=== PATIENT | male | born 1975 | race Caucasian/White ===

== ENCOUNTER 2017-08-02 17:13 | Inpatient (IN) | payer MEDICAID ==
[~2017-08-02] VITALS: Ht 177.8 cm; Wt 113.1 kg
[2017-08-02 17:18] VITALS: Ht 177.8 cm; Wt 113.1 kg
[2017-08-02 18:14] LABS: BASOPHIL % 0.2 % (0-2); PLATELET COUNT 295 x10^3mcL (130-400); RED CELL DISTRIBUTION WIDTH 13.5 % (11.5-14.5)
[2017-08-02 18:19] LABS: CALCIUM 8.8 mg/dL (8.5-10.1); CARBON DIOXIDE 27.8 mmol/L (21-32); CHLORIDE SERUM 99 mmol/L (98-107); CREATININE SERUM 0.9 mg/dL (0.7-1.3); GFR1 > 60 mL/min; GLUCOSE SERUM 122 mg/dL (74-106); POTASSIUM SERUM 3.5 mmol/L (3.5-5.1); SODIUM SERUM 137 mmol/L (136-145)
[2017-08-02 18:21] LABS: microscopic required? NO
[2017-08-02 18:23] LABS: ALBUMIN 3.8 g/dL (3.4-5.0); ALKALINE PHOSPHATASE 71 U/L (46-116); ALT/SGPT 42 U/L (16-63); AMYLASE 49 U/L (25-115); AST/SGOT 17 U/L (15-37); BILIRUBIN TOTAL 0.9 mg/dL (0.20-1.00); LIPASE 48 IU/L (73-393); TOTAL PROTEIN, SERUM 7.7 g/dL (6.4-8.2)
[2017-08-02 18:37] LABS: urine erythrocyte NEGATIVE (NEGATIVE)
[2017-08-02 19:46] LABS: T3 TOTAL 1.05 ng/mL
[2017-08-02 19:55] LABS: FREE T4 0.91 ng/dL (0.76-1.46); FREE THYROXINE INDEX 2.3 ug/dL (1.4-4.5); T4(THYROXINE) 6.7 ug/dL (4.7-13.3)
[2017-08-02 19:56] VITALS: BP 141/89
[2017-08-02 20:12] LABS: CHOLESTEROL/HDL RATIO 5.2; MAGNESIUM 1.6 mg/dL (1.8-2.4); PHOSPHOROUS 2.6 mg/dL (2.5-4.9)
[2017-08-03 05:45] VITALS: BP 130/70
[2017-08-03 06:27] LABS: PLATELET COUNT 280 x10^3mcL (130-400); RED CELL DISTRIBUTION WIDTH 13.1 % (11.5-14.5)
[2017-08-03 06:50] LABS: CALCIUM 8.4 mg/dL (8.5-10.1); CARBON DIOXIDE 27.4 mmol/L (21-32); CHLORIDE SERUM 102 mmol/L (98-107); GFR1 > 60 mL/min; GLUCOSE SERUM 160 mg/dL (74-106); MAGNESIUM 1.9 mg/dL (1.8-2.4); PHOSPHOROUS 3.9 mg/dL (2.5-4.9); POTASSIUM SERUM 4.1 mmol/L (3.5-5.1); SODIUM SERUM 139 mmol/L (136-145)
[2017-08-03 08:04] LABS: BAND NEUTROPHIL 4 % (0-10); MONOCYTE 2 % (0-7); SEGMENTED NEUTROPHILS 88 % (37-75); rbc morphology (normal/abnorm) NORMAL (NORMAL)
[2017-08-03 09:47] VITALS: BP 122/71
[2017-08-03 13:33] VITALS: BP 130/81
[2017-08-03 17:19] VITALS: BP 144/83
[2017-08-03 21:00] VITALS: BP 133/79
[2017-08-04 05:45] VITALS: BP 119/80
[2017-08-04 05:59] LABS: BASOPHIL % 0.4 % (0-2); PLATELET COUNT 251 x10^3mcL (130-400); RED CELL DISTRIBUTION WIDTH 13.6 % (11.5-14.5)
[2017-08-04 06:21] LABS: CALCIUM 8.2 mg/dL (8.5-10.1); CARBON DIOXIDE 27.4 mmol/L (21-32); CHLORIDE SERUM 105 mmol/L (98-107); GFR1 > 60 mL/min; GLUCOSE SERUM 131 mg/dL (74-106); MAGNESIUM 2.1 mg/dL (1.8-2.4); PHOSPHOROUS 3.4 mg/dL (2.5-4.9); POTASSIUM SERUM 3.8 mmol/L (3.5-5.1); SODIUM SERUM 139 mmol/L (136-145)
[2017-08-04 08:47] VITALS: BP 143/95
[2017-08-04 16:52] VITALS: BP 161/101
[2017-08-05 05:50] VITALS: BP 144/97
[2017-08-05 06:27] LABS: BASOPHIL % 0.5 % (0-2); PLATELET COUNT 322 x10^3mcL (130-400); RED CELL DISTRIBUTION WIDTH 13.4 % (11.5-14.5)
[2017-08-05 07:04] LABS: CALCIUM 8.8 mg/dL (8.5-10.1); CARBON DIOXIDE 30.8 mmol/L (21-32); CHLORIDE SERUM 102 mmol/L (98-107); CREATININE SERUM 0.9 mg/dL (0.7-1.3); GFR1 > 60 mL/min; GLUCOSE SERUM 114 mg/dL (74-106); MAGNESIUM 1.9 mg/dL (1.8-2.4); PHOSPHOROUS 5.1 mg/dL (2.5-4.9); SODIUM SERUM 141 mmol/L (136-145)
[2017-08-05 08:33] VITALS: BP 148/90
[2017-08-05] MEDS ORDERED: LEVAQUIN750 MG PO (11:57)
[2017-08-05] MEDS ORDERED: CLEOCIN HCL300 MG PO (11:58)
[2017-08-05] MEDS ORDERED: LAC PO (11:59)
[2017-08-05] MEDS ORDERED: COL100 PO (12:00)
[2017-08-05] MEDS ORDERED: SIMETHICONE80 MG CH (12:00)
[2017-08-05] MEDS ORDERED: TYLENOL325 M1 PO (12:06)
[2017-08-05] MEDS ORDERED: NORCO1 TA2 PO (12:07)
[2017-08-05 14:07] VITALS: BP 148/90
== END 2017-08-05 16:51 | disposition home or self-care (01) | DRG 710 ==
LOC: ED 17:13 → MU 18:51 → DU 18:51 → MU 08-03 09:25
PROVIDERS: Emergency Medicine; Family Medicine; Surgery
PROC: 0DTJ4ZZ Resection of Appendix, Percutaneous Endoscopic Approach (ICD-10-PCS; principal; 2017-08-02 20:30)
DX: A41.9 Sepsis, unspecified organism (principal); K35.2 Acute appendicitis with generalized peritonitis; E11.65 Type 2 diabetes mellitus with hyperglycemia; E83.42 Hypomagnesemia; R65.20 Severe sepsis without septic shock; E66.9 Obesity, unspecified; Z68.36 Body mass index [BMI] 36.0-36.9, adult; F17.200 Nicotine dependence, unspecified, uncomplicated
CPT/HCPCS: 82962; 83880; 84439; J0330; J1644; J2175; J2250; J2270; J2405; J2543; J2704; J2710; J3010; J3490; J7030; J7120; J7613; Q0092

== ENCOUNTER 2017-10-18 22:44 | Emergency (ER) | payer SELFPAY ==
[~2017-10-18] VITALS: Ht 188 cm; Wt 108.0 kg
[~2017-10-18 22:44] MED LIST: CLEOCIN HCL300 MG PO; COL100 PO; LAC PO; LEVAQUIN750 MG PO; NORCO1 TA2 PO; SIMETHICONE80 MG CH; TYLENOL325 M1 PO
[2017-10-18 23:19] VITALS: BP 152/76; Ht 188 cm; Wt 108.0 kg
== END 2017-10-19 01:28 | disposition left against medical advice (07) ==
LOC: ED 22:44
DX: Z53.21 Procedure and treatment not carried out due to patient leaving prior to being seen by health care provider (principal)

== ENCOUNTER 2018-05-20 10:16 | Emergency (ER) | payer MEDICAID ==
[~2018-05-20] VITALS: Ht 175.3 cm; Wt 106.1 kg
[2018-05-20 10:20] VITALS: Ht 175.3 cm; Wt 106.1 kg
[2018-05-20 14:07] VITALS: BP 130/87
== END 2018-05-20 14:07 | disposition home or self-care (01) ==
LOC: ED 10:16
DX: J45.909 Unspecified asthma, uncomplicated (principal); J20.9 Acute bronchitis, unspecified; F17.210 Nicotine dependence, cigarettes, uncomplicated; Z90.89 Acquired absence of other organs
CPT/HCPCS: 99406; J0171; J7512; J7613; J7644; Q0092

== ENCOUNTER 2018-06-03 11:18 | Emergency (ER) | payer MEDICAID ==
[~2018-06-03] VITALS: Ht 175.3 cm; Wt 106.6 kg
[2018-06-03 11:46] VITALS: Ht 175.3 cm; Wt 106.6 kg
[2018-06-03 18:29] VITALS: BP 135/78
== END 2018-06-03 18:29 | disposition home or self-care (01) ==
LOC: ED 11:18
DX: S93.602A Unspecified sprain of left foot, initial encounter (principal); S40.011A Contusion of right shoulder, initial encounter; S20.211A Contusion of right front wall of thorax, initial encounter; S30.1XXA Contusion of abdominal wall, initial encounter; S90.02XA Contusion of left ankle, initial encounter; J45.909 Unspecified asthma, uncomplicated; Z90.89 Acquired absence of other organs; V19.3XXA Pedal cyclist (driver) (passenger) injured in unspecified nontraffic accident, initial encounter; Y93.I9 Activity, other involving external motion; Y99.8 Other external cause status; Y92.413 State road as the place of occurrence of the external cause

== ENCOUNTER 2018-07-08 20:46 | Emergency (ER) | payer MEDICAID ==
[~2018-07-08] VITALS: Ht 172.7 cm; Wt 105.2 kg
[2018-07-08 20:55] VITALS: Ht 172.7 cm; Wt 105.2 kg
[2018-07-08 22:34] VITALS: BP 135/88
== END 2018-07-08 22:34 | disposition home or self-care (01) ==
LOC: ED 20:46
DX: J10.1 Influenza due to other identified influenza virus with other respiratory manifestations (principal); J45.909 Unspecified asthma, uncomplicated; Z90.89 Acquired absence of other organs
CPT/HCPCS: 87804; J1885

== ENCOUNTER 2018-11-30 22:39 | Inpatient (IN) | payer MEDICAID ==
[~2018-11-30] VITALS: Ht 188 cm; Wt 104.8 kg
[2018-11-30 22:57] VITALS: Ht 188 cm; Wt 104.8 kg
--- NOTE | 2018-12-01 01:24 | NUR ---
PT PRESENTS TO ED WITH C/C OF LOWER LEFT QUADRANT PAIN, RADIATING TO HIS LEFT LOWER BACK. UPON PALPATION PT REPORTS SEVERE PAIN. PT STATES HE IS HAVING DIFFIUCTLY URINATING DUE TO PAIN. PT REPORTS HX OF "STONES" IN HIS URINE APPROX 7 MONTHS AGO. PT DENIES N/V AND CONSTIPATION. PT REPORTED THAT HE LAST URINATED APPROXIMATELY 30 MINUTES AGO IN THE ED, URINATION WAS PAINFUL. AT BEDSIDE. PT AWAKE, AAOX4, AMBULATORY WITH STEADY GAIT, RESP E/U, NAD NOTED.
[2018-12-01 01:51] LABS: microscopic required? YES; urine erythrocyte 3+ (NEGATIVE)
[2018-12-01 01:52] LABS: BASOPHIL % 0.6 % (0-2); PLATELET COUNT 340 x10^3mcL (130-400); RED CELL DISTRIBUTION WIDTH 12.8 % (11.5-14.5)
[2018-12-01 01:59] LABS: CALCIUM 8.1 mg/dL (8.5-10.1); CARBON DIOXIDE 24.5 mmol/L (21-32); CREATININE SERUM 1.7 mg/dL (0.7-1.3); POTASSIUM SERUM 4.1 mmol/L (3.5-5.1)
[2018-12-01 02:04] LABS: ALBUMIN 3.5 g/dL (3.4-5.0); BILIRUBIN TOTAL 0.48 mg/dL (0.20-1.00); TOTAL PROTEIN, SERUM 7.5 g/dL (6.4-8.2)
--- NOTE | 2018-12-01 02:45 | NUR ---
PT RESTING IN ED [place]. PT HAS AT BEDSIDE. NO ACD NOTED
--- NOTE | 2018-12-01 03:57 | NUR ---
PT MEDICATED PER EMAR ORDERS. PLEASE SEE EMAR. PT IS A/O X4. PT RESP ARE E/U. PT HAS CALL LIGHT WITHIN REACH. NO ACD NOTED
--- NOTE | 2018-12-01 04:13 | NUR ---
PT REPORT GIVEN TO VERNA RN UPSTAIRS TO ASSUME PRIMARY CARE OF PT
--- NOTE | 2018-12-01 04:25 | NUR ---
RECEIVED PT FROM ED VIA WHEELCHAIR, CAME IN DUE TO LEFT ABDOMINAL PAIN RADIATING TO LEFT FLANK AREA X1 WEEK. AAOX4. DENIES HEADACHE/DIZZINESS. ABLE TO FOLLOW COMMANDS. NO SOB NOTED. DENIES CHEST PAIN/PRESSURE. DENIES ABDOMINAL DISCOMFORT. ABDOMEN IS SOFT. DENIES FLANK PAIN. C/O PAIN ON URINATION ONLY. IV SITE ON THE LFA IS PATENT AND INTACT. SIDE RAILS UPX2. CALL LIGHT ON REACH. WILL CONT TO MONITOR
[2018-12-01 04:27] VITALS: BP 134/89
--- NOTE | 2018-12-01 04:27 | NUR ---
PT WHEELED UPSTAIRS VIA WHEELCHAIR TO ROOM 222A BY EMT ROSEMARY. NO INCIDENCE NOTED
[2018-12-01 04:30] LABS: MAGNESIUM 1.9 mg/dL (1.8-2.4); PHOSPHOROUS 4.6 mg/dL (2.5-4.9)
[2018-12-01 04:51] LABS: CHOLESTEROL/HDL RATIO 6.2
--- NOTE | 2018-12-01 05:10 | NUR ---
BEDSIDE REPORT GIVEN TO LUISANA FOR CONTINUITY OF CARE
--- NOTE | 2018-12-01 06:05 | NUR ---
PT IN BED RESTING. NO ACUTE RESP DISTRESS NOTED ON RA. PT DENIES ANY PAIN AT THIS TIME. RESPIRATORY THERAPIST AT BEDSIDE FOR EKG. BLOOD SUGAR WAS CHECKED 123. NO COVERAGE NEEDED. DIET ORDER PLACED FOR TOMORROW, PAGED DR. SANDS TO CORRECT ORDER, AWAITING CALL BACK. WILL CONTINUE TO MONITOR. CALL LIGHT IN REACH. BED IN LOWEST POSITION.
--- NOTE | 2018-12-01 07:45 | NUR ---
PT IN BED RESTING. MED SURG. DENIES CHEST PAIN/PRESSURE. RESPIRATION EQUAL AND UNLABORED ON RA. DENIES SOB. PT STATES PAIN IS ONLY UPON URINATION. PT DENIES ANY PAIN AT THIS TIME. PT ENCOURAGED TO VOIDS USING URINAL, SO URINE CAN BE STRAINED. PT VERBALIZED UNDERSTANDING. IV PATENT AND INFUSING TO LFA. NO REDNESS OR SWELLING NOTED. WILL CONTINUE TO MONITOR. CALL LIGHT IN REACH. BED IN LOWEST POSITION.
[2018-12-01 08:10] VITALS: BP 122/74
--- NOTE | 2018-12-01 08:45 | NUR ---
PT SITTING UP IN BED. NO ACUTE RESP DISTRESS NOTED ON RA. PT DENIES ANY PAIN AT THIS TIME. FAMILY AT BEDSIDE. PT GIVEN PO MEDS. TOLERATED WELL. IV PATENT AND INFUSING TO LFA. NO REDNESS OR SWELLING NOTED. WILL CONTINUE TO MONITOR. CALL LIGHT IN REACH. BED IN LOWEST POSITION.
--- NOTE | 2018-12-01 09:33 | NUR ---
RECEIVED PT FROM REINFORCING BAR SETTER RN VERNA, BEDSIDE REPORT GIVEN. WILL CONTINUE TO MONITOR.
--- NOTE | 2018-12-01 11:37 | NUR ---
PT IN BED RESTING. NO ACUTE RESP DISTRESS NOTED ON RA. PT DENIES ANY PAIN AT THIS TIME. BLOOD SUGAR CHECKED WAS 115. NO COVERAGE NEEDED. STRAINED 400 ML OF YELLOW URINE, NO STONES NOTED. WILL CONTINUE TO MONITOR. CALL LIGHT IN REACH. BED IN LOWEST POSITION.
[2018-12-01 12:46] VITALS: BP 116/64
--- NOTE | 2018-12-01 14:50 | NUR ---
PT SITTING UP IN BED. PT C/O PAIN TO GROIN AREA /10 TENDERNESS. MEDICATED PER EMAR. TOLERATED WELL. WILL CONTINUE TO MONITOR. CALL LIGHT IN REACH. BED IN LOWEST POSITION.
[2018-12-01 15:01] LABS: AMPHETAMINE QUAL UR NONE DETECTED (See below)
[2018-12-01] MEDS ORDERED: FLO4 PO (15:19)
[2018-12-01] MEDS ORDERED: IBUPROFEN400 MG PO (15:22)
[2018-12-01] MEDS ORDERED: NORCO1 TA2 PO (15:25)
--- NOTE | 2018-12-01 15:33 | NUR ---
SPOKE WITH DR. ROMANO REGARDING DISCHARGE. PER DR. ROMANO DISCHARGE WILL BE READY IN 10 TO 15 MINUTES.
[2018-12-01 15:39] VITALS: BP 116/64
[2018-12-01 15:40] VITALS: BP 116/64
[2018-12-01 16:10] VITALS: BP 150/93
--- NOTE | 2018-12-01 16:20 | NUR ---
PT SITTING UP AT BEDSIDE. PT GIVEN DISCHARGE INSTRUCTIONS. PT ENCOURAGED TO CONTINUE ACTIVITY TOLERATED. PT ENCOURAGED TO FOLLOW UP WITH PCP AFTER DISCHARGE. PT VERBALIZED UNDERSTANDING. PT GIVEN STRAINER TO STRAIN URINE. PT EDUCATED ON HOW TO USE. PT GIVE PRESCRIPTION FOR FLOMAX, IBUPROFEN AND NORCO. PT EDUCATED ON WHEN TO TAKE. PT INFORMED DOSE OF NORCO WAS GIVEN AT 2:40PM, PT IS OKAY TO TAKE NEXT DOSE AFTER 8:40PM. PT VERBALIZED UNDERSTANDING. PT GIVEN DISCHARGE INSTRUCTIONS AND ENCOURAGED TO TAKE PAPER WORK WITH HIM TO PCP APPOINTMENT. ALL QUESTIONS AND CONCERNS ADDRESSED. IV TO LFA REMOVED CATHETER INTACT. NO REDNESS OR SWELLING NOTED. NO PROBLEMS ENCOUNTERED. PT WALKED OFF FLOOR VIA COIN TELLER.
== END 2018-12-01 16:39 | disposition home or self-care (01) | DRG 465 ==
LOC: ED 22:39 → MU 12-01 03:46 → EDBEDREQ 12-01 03:47 → MU 12-01 04:28
PROVIDERS: Emergency Medicine; ADMIT General Practice
DX: N20.1 Calculus of ureter (principal); N17.0 Acute kidney failure with tubular necrosis; E11.8 Type 2 diabetes mellitus with unspecified complications; Z68.29 Body mass index [BMI] 29.0-29.9, adult
CPT/HCPCS: 82962; G0378; J1885; J2405; J3010; J7030